=== PATIENT | female | born 1970 | race Caucasian/White ===

== ENCOUNTER 2019-07-17 12:08 | Emergency (ER) | payer BC ==
[2019-07-17] MEDS ORDERED: ALBUTEROL NEBULIZED (CONC) 5 MG, SODIUM CHLORIDE 0.9% NEBULIZ 3 ML INHALATION STA ×2 (12:59)
[2019-07-17] MEDS ORDERED: IPRATROPIUM 0.5 MG/2.5 ML NEBU INHALATION STA (12:59)
[2019-07-17] MEDS ORDERED: methylPREDNISolone SOD SUCCI 125 MG/2 ML VIAL IM ONE (13:00)
--- NOTE | 2019-07-17 13:05 | ED ---
General Adult HPI - General Chief complaint: Upper Respiratory Infection Stated complaint: bronchitis Time Seen by Provider: 07/17/19 12:10 Source: patient, RN notes reviewed, old records reviewed Mode of arrival: ambulatory Limitations: no limitations - History of Present Illness Initial comments: This is a 48-year-old female presents emergency Department stating she's had a cough for 3 weeks. Patient states she's been on antibiotics and has gotten a couple steroid shots in the office but she continues to be short of breath and cough. Patient states she cannot stop coughing. Patient states she seen her primary medical care doctor twice. She is not getting better. Patient states she is is a smoker and continues to smoke. Patient denies any fever chills. Patient denies any chest pain or palpitations. Patient denies any abdominal pain. Patient denies any lightheadedness or dizziness except after a severe coughing spell she gets a little lightheaded. Denies any swelling to the legs or calf tenderness. - Related Data Home Medications Medication Instructions Recorded Confirmed Budesonide/Formoterol Fumarate 1 puff INHALATION RT-BID 07/17/19 07/17/19 [Symbicort 160-4.5 Mcg Inhaler] Guaifen/Phenyleph/Acetaminophn 5 ml PO Q6H PRN 07/17/19 07/17/19 [Mucinex Sinus-Max Severe Liq] Levothyroxine Sodium [Synthroid] 50 mcg PO DAILY 07/17/19 07/17/19 Multivitamins, Thera [Multivitamin 1 tab PO DAILY 07/17/19 07/17/19 (formulary)] Omeprazole 20 mg PO DAILY 07/17/19 07/17/19 Previous Rx's Medication Instructions Recorded Albuterol Inhaler [Ventolin Hfa 1 - 2 puff INHALATION Q6HR PRN #2 07/17/19 Inhaler] puff predniSONE 40 mg PO DAILY #12 tab 07/17/19 Allergies Allergy/AdvReac Type Severity Reaction Status Date / Time No Known Allergies Allergy Verified 07/17/19 13:03 Review of Systems ROS Statement: Those systems with pertinent positive or pertinent negative responses have been documented in the HPI. ROS Other: All systems not noted in ROS Statement are negative. Past Medical History Past Medical History: No Reported History History of Any Multi-Drug Resistant Organisms: None Reported Past Surgical History: Orthopedic Surgery, Tubal Ligation Past Psychological History: No Psychological Hx Reported Smoking Status: Current every day smoker Past Alcohol Use History: None Reported Past Drug Use History: None Reported General Exam - General Exam Comments Initial Comments: GENERAL: Patient is well-developed and well-nourished. Patient is nontoxic and well-hydrated and is in mild distress. ENT: Neck is soft and supple. No significant lymphadenopathy is noted. Oropharynx is clear. Moist mucous membranes. Neck has full range of motion without eliciting any pain. EYES: The sclera were anicteric and conjunctiva were pink and moist. Extraocular movements were intact and pupils were equal round and reactive to light. Eyelids were unremarkable. PULMONARY: Unlabored respirations. Good breath sounds bilaterally. No audible rales rhonchi or wheezing was noted. CARDIOVASCULAR: There is a regular rate and rhythm without any murmurs gallops or rubs. ABDOMEN: Soft and nontender with normal bowel sounds. SKIN: Skin is clear with no lesions or rashes and otherwise unremarkable. NEUROLOGIC: Patient is alert and oriented x3. Cranial nerves II through XII are grossly intact. Motor and sensory are also intact. Normal speech, volume and content. Symmetrical smile. MUSCULOSKELETAL: Normal extremities with adequate strength and full range of motion. LYMPHATICS: No significant lymphadenopathy is noted PSYCHIATRIC: Normal psychiatric evaluation. Limitations: no limitations Course Vital Signs 07/17/19 07/17/19 07/17/19 12:10 12:30 12:31 Temperature 98.5 F Pulse Rate 80 98 Respiratory 22 20 20 Rate Blood Pressure 153/96 O2 Sat by Pulse 99 98 Oximetry 07/17/19 07/17/19 07/17/19 13:00 13:13 13:30 Temperature Pulse Rate 79 Respiratory Rate Blood Pressure 140/93 132/88 O2 Sat by Pulse 99 100 Oximetry 07/17/19 07/17/19 07/17/19 13:39 14:00 14:30 Temperature Pulse Rate 85 Respiratory Rate Blood Pressure 120/80 110/73 O2 Sat by Pulse 93 L 98 Oximetry Medical Decision Making - Medical Decision Making Chest x-ray shows no acute abnormality I went in and reevaluate the patient she stated that the treatment helped her decrease her coughing significantly. She no longer felt short of breath. She felt a little jittery after the treatment. She states she'll follow-up with her doctor and hopefully get a consult for [employer] consultant. Disposition Clinical Impression: Bronchospasm, acute Disposition: HOME SELF-CARE Instructions (If sedation given, give patient instructions): Bronchospasm (ED) Prescriptions: predniSONE 40 mg PO DAILY #12 tab Albuterol Inhaler [Ventolin Hfa Inhaler] 1 - 2 puff INHALATION Q6HR PRN #2 puff PRN Reason: Difficulty breathing Is patient prescribed a controlled substance at d/c from ED?: No Referrals: Octavio Lara DO [Primary Care Provider] - 1-2 days Faith Calero MD [STAFF PHYSICIAN] - 1-2 days Time of Disposition: 15:15
--- NOTE | 2019-07-17 14:10 | XR ---
EXAMINATION TYPE: XR chest 2V DATE OF EXAM: 07/17/2019 COMPARISON: 01/14/2017 HISTORY: Shortness of breath and cough. Recent bronchitis. TECHNIQUE: Frontal and lateral views of the chest are obtained. FINDINGS: There is no focal air space opacity, pleural effusion, or pneumothorax seen. The cardiac silhouette size is within normal limits. The osseous structures are intact.. Minimal degenerative c hanges of the thoracic spine. IMPRESSION: No acute cardiopulmonary process.
[2019-07-17 15:25] VITALS: BP 121/77
[2019-07-17 15:35] VITALS: PULSE 86; RESP 20; TEMP 98.7
== END 2019-07-17 15:35 | disposition home or self-care (01) ==
LOC: EC 12:08
DX: J98.01 Acute bronchospasm (principal); F17.200 Nicotine dependence, unspecified, uncomplicated; Z79.899 Other long term (current) drug therapy
CPT/HCPCS: 94640; 71046; 99284; 96372; J2930